=== PATIENT | female | born 1990 | race Caucasian/White ===

== ENCOUNTER 2018-09-15 18:08 | Emergency (ER) | payer MEDICAID ==
[~2018-09-15] VITALS: Ht 154.9 cm; Wt 82.0 kg
[2018-09-15 18:24] VITALS: BP 126/86
== END 2018-09-15 18:55 | disposition home or self-care (01) ==
LOC: ER 18:08
DX: M54.2 Cervicalgia (principal); Z98.890 Other specified postprocedural states
CPT/HCPCS: 99282